=== PATIENT | female | born 1955 | race Two or more races ===

== ENCOUNTER 2025-05-11 09:34 | Emergency (ER) | payer OTHER ==
[~2025-05-11] VITALS: Ht 160 cm; Wt 68.0 kg
[~2025-05-11 09:34] MED LIST: ASPIR 8181 MG; ATENOLOL100 MG; COZAAR25 MG; FENOFIBRATE40 MG; GLIPIZIDE10 MG; METFORMIN HCL1000 MG; SIMVASTATIN40 MG; VASOTEC20 M1
[2025-05-11] MEDS ORDERED: INSULIN REGULAR, HUMAN 1,000 UNIT/10 ML UNITS SUBCUTANEO ONE (12:15)
== END 2025-05-11 14:45 | disposition home or self-care (01) ==
LOC: ER 09:53
DX: E11.65 Type 2 diabetes mellitus with hyperglycemia (principal); Z79.84 Long term (current) use of oral hypoglycemic drugs; I10 Essential (primary) hypertension; Z88.0 Allergy status to penicillin
CPT/HCPCS: 96372; 99282; J1815